=== PATIENT | male | born 1980 | race Caucasian/White ===

== ENCOUNTER 2016-11-28 11:58 | Emergency (ER) | payer OTHER ==
[2016-11-28] MEDS ORDERED: FOLIC ACID INJ 1 MG, THIAMINE INJ 100 MG, MAGNESIUM SULFATE 2 GM, MULTIVITAMIN 10 ML in... IV STA ×5 (12:24)
[2016-11-28] MEDS ORDERED: SODIUM CHLORIDE 0.9% 1,000 ML IV ONE (12:24)
[2016-11-28] MEDS ORDERED: LORazepam 2 MG/ML SYRINGE IVP STA ×2 (17:04→18:28)
[2016-11-28] MEDS ORDERED: LORazepam 2 MG/ML SYRINGE ONE ×2 (17:06→18:37)
[2016-11-28] MEDS ORDERED: LORazepam 0.5 MG TABLET PO STA ×2 (19:42→23:29)
[2016-11-28] MEDS ORDERED: LORazepam 0.5 MG TABLET ONE ×2 (19:43→23:34)
[2016-11-29] MEDS ORDERED: LORazepam 0.5 MG TABLET PO STA (01:07)
[2016-11-29] MEDS ORDERED: LORazepam 0.5 MG TABLET ONE ×2 (01:46→05:42)
== END 2016-11-29 08:37 ==
DX: T14.91 Suicide attempt (principal); F10.239 Alcohol dependence with withdrawal, unspecified; F10.229 Alcohol dependence with intoxication, unspecified; T51.0X1A Toxic effect of ethanol, accidental (unintentional), initial encounter; Y90.4 Blood alcohol level of 80-99 mg/100 ml
CPT/HCPCS: 36415; 80053; 80306; 80307; 80320; 80329; 81003; 83690; 85025; 96374; 96376; 99284; A9270; J2060; J3411

== ENCOUNTER 2017-01-25 13:29 | Outpatient (CLI) | payer OTHER ==
[2017-01-25] MEDS ORDERED: BUFFERED LIDOCAINE 10 ML SYRINGE IU ONE (14:41)
[2017-01-25] MEDS ORDERED: IOTHALAMATE MEGLUMINE 50 ML VIAL IVP ONE ×2 (14:41)
[2017-01-25] MEDS ORDERED: GADOPENTETATE DIMEGLUMINE 5 ML VIAL IVP ONE ×2 (14:41)
[2017-01-25] MEDS ORDERED: LIDOCAINE 1% 50 ML MDV SUBQ ONE ×2 (14:41)
== END 2017-01-25 13:30 | disposition home or self-care (01) ==
DX: S43.491A Other sprain of right shoulder joint, initial encounter (principal); M75.91 Shoulder lesion, unspecified, right shoulder
CPT/HCPCS: 23350; 73222; 77002; Q9961

== ENCOUNTER 2017-09-21 09:45 | Outpatient (CLI) | payer OTHER ==
[2017-09-21] MEDS ORDERED: methylPREDNISolone ACETATE 40 MG/ML VIAL IM ONE (13:01)
[2017-09-21] MEDS ORDERED: BUFFERED LIDOCAINE 10 ML SYRINGE IU ONE (13:01)
--- NOTE | 2017-09-25 13:46 | Ultrasound Report ---
DATE OF SERVICE: 09/21/2017 ULTRASOUND-GUIDED RIGHT BICEPS TENDON INJECTION WITH STEROIDS: 09/21/2017 CLINICAL INDICATION: Right shoulder pain. PROCEDURE: Following obtaining informed consent, the patient's right shoulder was prepped and draped in the usual sterile fashion. The skin and soft tissues were anesthetized with lidocaine. A 22-gauge needl e was advanced down to the anterior margin of the biceps tendon, and 1 mL of 40 mg/mL of Depo-Medrol was in jected into the tendon sheath. The patient tolerated the procedure well. No immediate complications. IMPRESSION: Successful right biceps tendon injection with steroids. TD: 09/21/2017 22:09
== END 2017-09-21 09:46 | disposition home or self-care (01) ==
LOC: DI 09:45
PROVIDERS: ATTEND Orthopaedic Surgery
DX: M25.511 Pain in right shoulder (principal)
CPT/HCPCS: 20550; 76942; J1030